=== PATIENT | male | born 2000 | race Caucasian/White ===

== ENCOUNTER 2023-07-06 15:33 | Emergency (ER) | payer OTHER, SELFPAY ==
[2023-07-06] VITALS (8 sets, daily range): BP systolic 106–138; BP diastolic 57–86; PULSE 68–92; RESP 18; TEMP 36.6; O2SAT 98–99; BMI 24.4
--- NOTE | 2023-07-06 16:24 | DI.RAD.S_ITS ---
PROCEDURE: XR RIBS RT MIN 3V W CXR 1V INDICATIONS: felt a pop/pain TECHNIQUE: 3 views of the ribs were acquired, along with a single view chest. COMPARISON: None. FINDINGS: Surgical changes and devices: None. Bones and chest wall: No fractures or dislocations. No suspicious bony lesions. Overlying soft tissues appear unremarkable. Lungs and pleura: No pleural effusions or pneumothorax. Lungs appear clear. Mediastinum: Mediastinal contours appear normal. Heart size is normal. IMPRESSION: No displaced rib fracture or pneumothorax. Dictated by: Rosalba Laureano MD, PhD on 07/06/2023 at 17:05 Approved by: Rosalba Laureano MD, PhD on 07/06/2023 at 17:06
--- NOTE | 2023-07-06 20:14 | ED_ITS ---
HPI - Chest Pain General Chief Complaint: Chest Pain Stated Complaint: side and chestpain, lifted something heavy at work Time Seen by Provider: 07/06/23 19:08 Source: patient Mode of arrival: Wheelchair Limitations: no limitations History of Present Illness HPI narrative: Otherwise healthy 22-year-old young man was at work, he was lifting a plank and moving ladders which is typical part of his job and felt severe pain in the right side of his chest, mid axillary line. Seemed to subside. He again tried to move a ladder and again had severe pain is time was significant enough that he had 2 focused to catch his breath, was leaning over, felt nauseated and comes in for further evaluation. He has not been sick recently. He has had no similar injuries. There has been no falls or other significant trauma. Related Data Previous Rx's Medication Instructions Recorded lidocaine 5 % topical patch 1 patch topical DAILY #15 ea 07/06/23 Allergies Allergy/AdvReac Type Severity Reaction Status Date / Time No Known Drug Allergies Allergy Verified 07/06/23 16:19 Review of Systems Review of Systems Narrative: Pertinent positive and negative findings as per HPI Patient History Social History Smoking Status: Never smoker Smoking Status: Never smoker Substance Use Type: does not use Exam Initial Vital Signs Initial Vital Signs: Vital Signs Temperature 98 F 07/06/23 16:19 Pulse Rate 84 07/06/23 16:19 Respiratory Rate 18 07/06/23 16:19 Blood Pressure 116/74 07/06/23 16:19 Pulse Oximetry 99 07/06/23 16:19 Oxygen Delivery Method Room Air 07/06/23 16:19 General: Alert appropriate in no acute distress Respiratory: Able to speak in full sentences, no obvious respiratory distress, no diminished breath sounds, wheezing or crackles Chest: He has tenderness along the mid axillary line at approximately rib 8. Or 9. There is no bruising, abrasion and no vesicular lesions in the area Skin: No obvious rashes, warm and dry Neurologic: Grossly intact no obvious asymmetries or abnormalities Psych: appropriate insight and affect, cooperative Course Orders Ordered: ED Orders 07/06/23 16:24 XR ribs RT min 3V w CXR1V Stat Vital Signs Vital signs: Vital Signs - 8 hr 07/06/23 16:19 07/06/23 18:48 07/06/23 18:49 Temperature 98 F Pulse Rate 84 80 92 H Respiratory Rate 18 Blood Pressure 116/74 Pulse Oximetry 99 99 99 Oxygen Delivery Method Room Air 07/06/23 18:49 07/06/23 19:00 07/06/23 19:01 Temperature Pulse Rate 68 75 Respiratory Rate Blood Pressure 138/71 Pulse Oximetry 98 99 Oxygen Delivery Method 07/06/23 19:01 07/06/23 19:30 07/06/23 19:30 Temperature Pulse Rate 79 Respiratory Rate 18 Blood Pressure 116/58 L 106/73 Pulse Oximetry 98 Oxygen Delivery Method MDM - Chest Pain MDM Narrative Medical decision making narrative: CC: Acute onset right rib pain after lifting heavy plank and ladder while at work Data collected from: patient Differential considered: Muscle strain, pneumothorax, spontaneous rib fracture, muscle from ribs Exam documented above, pertinent findings include: Point tenderness mid axillary line approximately rib 8. Worse with deep breathing Imaging studies independently reviewed: Rib x-rays are unremarkable. No fractures, no pneumothorax no hemothorax Treatments: Patient prefers to not take pills so lidocaine patch is placed Discussion: 22-year-old gentleman who has a pulled rib muscle possible rib muscle. No fractures, no pneumothorax. Recommended no heavy lifting for 2 days work note will be given. L and I forms are filled out. We will be given a prescription for lidocaine patches. Discussed ibuprofen and Tylenol. Discussed anticipated course of recovery and reasons to return to the emergency department. He is safe for discharge Discharge Plan Departure Patient Disposition: Home Clinical Impression: Rib pain on right side Instructions: DI for Rib Contusion Activity Restrictions/Additional Instructions: Thank you for coming in today Your x-rays are reassuring. You do not have a collapsed lung, you did not fracture any ribs, there is no injury to your thoracic vertebrae. I suspect you pulled the muscle around the rib. You may have even slightly the muscle from the rib. This is going to heal but it is going to hu rt likely for about a week. You do not need to limit activity specifically but I would recommend not doing any activity that exacerbates the pain specifically I have given you a prescription for lidocaine patches. Another topical option you might consider is Voltaren/diclofenac cream. This is a medicine similar to ibuprofen that can be applied topically. Using 400 mg of ibuprofen (2 over-the -counter pills) and 1 Tylenol every 6 hours can be very helpful in controlling pain. If you find that you are getting worse or develop any new symptoms, please feel free to return to the emergency department for further evaluation. Prescriptions: New lidocaine 5 % adhesive patch,medicated 1 patch topical DAILY Qty: 15 0RF Rx Instructions: leave on most painful area for up to 12 hrs Referrals: Miscellaneous,Doctor, MD [Primary Care Provider] - Stand Alone Forms: Patient Portal/API
[2023-07-06] MEDS: LIDOCAINE 5% PATCH 1 EACH TOP (20:51)
== END 2023-07-06 20:58 | disposition home or self-care (01) ==
PROVIDERS: Emergency Provider Emergency Medicine
DX: S29.9XXA Unspecified injury of thorax, initial encounter (principal); R07.81 Pleurodynia; X50.0XXA Overexertion from strenuous movement or load, initial encounter
CPT/HCPCS: 71101; 99282; 99283